=== PATIENT | female | born 1975 | race American Indian/Alaskan Native ===

== ENCOUNTER 2019-01-14 05:54 | Day surgery (SDC) | payer OTHER ==
[~2019-01-14] VITALS: Ht 167.6 cm; Wt 77.6 kg
[~2019-01-14 05:54] MED LIST: Colace 100MG PO; FLEXERIL10 MG PO; IRON18 MG PO; KEPPRA XR750 MG PO; KETO10TA2 PO; MIRALAX17 GM PO; NIFE60TA3 PO
== END 2019-01-14 12:10 | disposition home or self-care (01) ==
LOC: CIR.AMB 05:54
DX: N93.8 Other specified abnormal uterine and vaginal bleeding (principal)